=== PATIENT | female | born 1935 | race Caucasian/White ===

== ENCOUNTER 2020-01-03 17:35 | Outpatient (CLI) | payer MEDICARE, OTHER, SELFPAY ==
--- NOTE | ~2020-01-03 | CT_ITS ---
EXAMINATION: CT abdomen pelvis wo con DATE: 01/03/2020 17:56 INDICATION: Fever and weakness. TECHNIQUE: Computed tomography (CT) of the abdomen and pelvis was performed without intravenous contr ast. Automated exposure control and iterative reconstruction technique were employed. The dose-length product was 341.01 mGy-cm. COMPARISON: None. FINDINGS: The visualized portions of the lung bases demonstrate emphysema. There is a diffuse interst itial pattern in the lungs, consistent with mild pulmonary edema versus chronic lung disease. No pleu ral effusion. There are bilateral posterior diaphragmatic hernias containing fat. There is a large sl iding hiatal hernia. The liver is normal. There are gallstones in the gallbladder, which is normal in size. The spleen, pancreas, adrenal glands, and right kidney are normal. There is mild atrophy of le ft kidney. There is no urolithiasis. There is a right-sided hernia containing a portion of the bladde r between the obturator internus muscle and the levator ani muscle. There is a right inguinal hernia containing nonobstructed small bowel. There is diverticulosis of the colon without evidence of divert iculitis. The appendix is normal. There are no dilated loops of bowel. There is a fusiform juxtarenal and infrarenal aortic aneurysm measuring up to 5.5 cm with stent graft from distal thoracic aorta to the right external iliac artery and left common iliac artery. There is a stent in superior mesenteri c artery. There are small hematomas adjacent to the common femoral arteries. There are no pathologica lly enlarged lymph nodes. There is no free intraperitoneal fluid. There is severe lumbar spondylosis. IMPRESSION: 1. Emphysema. 2. Diffuse interstitial pattern in the lungs, consistent with mild pulmonary edema versus chronic ivet g disease. 3. Large sliding hiatal hernia. 4. Right-sided pelvic floor hernia containing a portion of the bladder. 5. Right inguinal hernia containing nonobstructed small bowel. 6. 5.5 cm fusiform abdominal aortic aneurysm with stent graft. 7. Small hematomas adjacent to the bilateral common femoral arteries. Reviewed, dictated and finalized at location A. [employer] IMPRESSION: 1. Emphysema. 2. Diffuse interstitial pattern in the lungs, consistent with mild pulmonary ed carli versus chronic lung disease. 3. Large sliding hiatal hernia. 4. Right-sided pelvic floor hernia containing a portion of the bladder. 5. Right inguinal hernia containing nonobstructed small bowel. 6. 5.5 cm fusiform abdominal aortic aneurysm with stent graft. 7. Small hematomas adjacent to the bilateral common femoral arteries.
== END 2020-01-03 17:36 | disposition home or self-care (01) ==
PROVIDERS: PCP Internal Medicine
DX: Z98.890 Other specified postprocedural states (principal)
CPT/HCPCS: 74176